=== PATIENT | female | born 1975 | race Caucasian/White ===

== ENCOUNTER 2022-06-01 10:53 | Outpatient (CLI) | payer BC | END 2022-06-01 10:54 | disposition home or self-care (01) | LOC: BICRAD 10:53 | PROVIDERS: ATTEND Family Medicine | DX: M54.50 Low back pain, unspecified (principal); M25.552 Pain in left hip; M25.551 Pain in right hip; M51.86 Other intervertebral disc disorders, lumbar region; M51.87 Other intervertebral disc disorders, lumbosacral region; M47.896 Other spondylosis, lumbar region; M16.0 Bilateral primary osteoarthritis of hip | CPT/HCPCS: 72100 ==

== ENCOUNTER 2022-10-24 07:38 | Outpatient (CLI) | payer BC | END 2022-10-24 07:39 | disposition home or self-care (01) | LOC: SCSMRI 07:38 | PROVIDERS: ATTEND Family Medicine | DX: R53.1 Weakness (principal) | CPT/HCPCS: 70553; 82565 ==